=== PATIENT | male | born 1965 | race Native Hawaiian/Other Pacific Islander ===

== ENCOUNTER 2017-10-29 07:44 | Day surgery (SDC) | payer OTHER ==
[~2017-10-29] VITALS: Ht 30.5 cm; Wt 0.5 kg
[~2017-10-29 07:44] MED LIST: LEVO0.0218 PO; LOVASTATIN20 MG PO; SIMV40TA57 PO
== END 2017-10-29 09:50 | disposition home or self-care (01) ==
LOC: OR 07:44
PROC: 0DBH8ZZ Excision of Cecum, Via Natural or Artificial Opening Endoscopic (ICD-10-PCS; principal; 2017-10-29)
DX: D12.0 Benign neoplasm of cecum (principal); K57.30 Diverticulosis of large intestine without perforation or abscess without bleeding; Z12.11 Encounter for screening for malignant neoplasm of colon
CPT/HCPCS: J2001; J2250; J2704; J3010

== ENCOUNTER 2017-12-31 10:05 | Outpatient (CLI) | payer OTHER | END 2017-12-31 19:30 | disposition home or self-care (01) | LOC: MRI 10:05 | DX: M87.051 Idiopathic aseptic necrosis of right femur (principal); M87.052 Idiopathic aseptic necrosis of left femur ==

== ENCOUNTER 2019-01-27 13:00 | Outpatient (CLI) | payer OTHER | END 2019-01-27 23:59 | LOC: RAD 13:00 | DX: M25.551 Pain in right hip (principal) ==